=== PATIENT | female | born 1970 ===

== ENCOUNTER 2017-08-23 08:52 | Emergency (ER) | payer OTHER ==
[2017-08-23 08:55] VITALS: BMI 26.9
[2017-08-23 08:58] VITALS: BP 146/86; PULSE 95; RESP 20; TEMP 97.9; O2SAT 99
--- NOTE | 2017-08-23 10:04 | C.PDOC ---
History Of Present Illness Pt c/o right lower back pain. She also c/o left ankle pain. Denies injury. Time Seen by Provider: 08/23/17 09:14 Chief Complaint (Nursing): Back Pain History Per: Patient Onset/Duration Of Symptoms: Days (about 2 weeks) Current Symptoms Are (Timing): Still Present Quality Of Discomfort: "Pain" Severity: Moderate Associated Symptoms: None. denies: Incontinence, New Weakness, New Numbness Exacerbating Factor(s): Turning, Movement Additional History Per: Prior Records Past Medical History Reviewed: Historical Data, Nursing Documentation, Vital Signs Vital Signs: Last Vital Signs Temp 97.9 F 08/23/17 08:55 Pulse 95 H 08/23/17 08:55 Resp 20 08/23/17 08:55 BP 146/86 08/23/17 08:55 Pulse Ox 99 08/23/17 08:55 - Medical History PMH: No Chronic Diseases Other Surgeries: Hysterectomy Family History: States: Unknown Family Hx - Social History Hx Tobacco Use: No Hx Alcohol Use: No Hx Substance Use: No - Immunization History Hx Tetanus Toxoid Vaccination: No Hx Influenza Vaccination: No Hx Pneumococcal Vaccination: No Review Of Systems Except As Marked, All Systems Reviewed And Found Negative. Constitutional: Negative for: Fever, Weakness Cardiovascular: Negative for: Chest Pain Respiratory: Negative for: Shortness of Breath Gastrointestinal: Negative for: Vomiting, Abdominal Pain Genitourinary: Negative for: Dysuria, Incontinence, Hematuria Musculoskeletal: Positive for: Back Pain. Negative for: Neck Pain Skin: Negative for: Rash Neurological: Negative for: Weakness, Numbness Physical Exam - Physical Exam Appears: Non-toxic, No Acute Distress Skin: Normal Color, Warm, Dry, No Rash Head: Atraumatic, Normacephalic Eye(s): bilateral: Normal Inspection, PERRL, EOMI Neck: Normal ROM, Supple Cardiovascular: Rhythm Regular Respiratory: Normal Breath Sounds, No Accessory Muscle Use Gastrointestinal/Abdominal: Soft, No Tenderness, No Mass Back: No CVA Tenderness, No Vertebral Tenderness, Paraspinal Tenderness (small mobile mass in right lumbar paraspinal soft tissue.) Extremity: Normal ROM, Tenderness (nonspecific left ankle), No Pedal Edema, No Calf Tenderness, Capillary Refill (wnl), No Deformity, No Swelling Extremity: Bilateral: Normal Color And Temperature Pulses: Left Dorsalis Pedis: Normal Neurological/Psych: Oriented x3, Normal Motor, Normal Sensation ED Course And Treatment O2 Sat by Pulse Oximetry: 99 Pulse Ox Interpretation: Normal - Other Rad Left ankle x-rays X-Ray: Interpreted by Me, Viewed By Me Interpretation: No fx or dislocation. Progress Note: GENA wrap was applied to left ankle. Reassessment Condition: Improved Disposition Counseled Patient/Family Regarding: Studies Performed, Diagnosis, Need For Followup, Rx Given - Disposition Referrals: Lexus Armstrong MD [Staff Provider] - Disposition: HOME/ ROUTINE Disposition Time: 10:06 Condition: IMPROVED Additional Instructions: Follow up with your doctor within 1-2 weeks for further evaluation and treatment , including MRI for the back. Return to the ER if you develop weakness, numbness , worsening of symptoms or if you have any other concerns. Prescriptions: Naproxen 375 mg PO BID PRN #20 tablet PRN Reason: Pain, Moderate (4-7) Instructions: Back Pain (ED) Forms: [facility] (Citizen [place]), General Discharge Instructions - Clinical Impression Clinical Impression: Palpable mass of lower back, Right low back pain, Left ankle pain
--- NOTE | 2017-08-23 10:53 | RAD ---
PROCEDURE: Left Ankle Radiographs. HISTORY: Pain COMPARISON: None FINDINGS: BONES: Normal. No fracture. JOINTS: Normal. No osteoarthritis. Ankle mortise maintained. Talar dome intact SOFT TISSUES: Normal. OTHER FINDINGS: None. IMPRESSION: No evidence of acute fracture or dislocation.
== END 2017-08-23 10:16 | disposition home or self-care (01) ==
LOC: C.ER 08:52
DX: M25.572 Pain in left ankle and joints of left foot (principal); M54.5 Low back pain; R22.2 Localized swelling, mass and lump, trunk